=== PATIENT | male | born 1955 | race Caucasian/White ===

== ENCOUNTER 2017-04-04 02:26 | Day surgery (SDC) | payer OTHER ==
[2013-10-14 11:42] VITALS: Ht 193 cm; Wt 91.2 kg
[~2017-04-04] VITALS: Ht 193 cm; Wt 91.2 kg
[~2017-04-04 02:26] MED LIST: ASPI81TA94 PO; CALC600T59 PO; CELE-1 PO; Ciprofloxacin PO; FISH OIL1 CAP PO; GLUC500C29 PO; GOLYTE PO; MULT-820 PO; OXYC-865 PO; RIVA10TA PO; UBID10CA8 PO
[2017-04-04] MEDS ORDERED: PROPOFOL EMUL(*) 10MG/ML 20 ML 20 ML ONE ×2 (06:47→09:12)
[2017-04-04 06:57] VITALS: BP 130/84
[2017-04-04] MEDS ORDERED: NORMOSOL R SOLN(*) 1000 ML BAG 1,000 ML IV PRN (07:25)
[2017-04-04] MEDS ORDERED: MIDAZOLAM 2 MG/2 ML VIAL IVP PRN (07:25)
[2017-04-04] MEDS ORDERED: LIDOCAINE/SOD BICARB 8.4% SYR ID ONE (07:25)
[2017-04-04 09:54] VITALS: BP 107/76
--- NOTE | 2017-04-04 10:00 | Short(Outpt) Discharge Summary ---
Discharge Summary Reason for Hosp/Final Diag: (1) Colon cancer screening Status: Chronic Hospital Course & Plan: Colonoscopy x4 completed without problems. Departure Discharge to: Home, Self Care Discharge Instructions Home Meds Active Scripts Peg/Electrolytes (GOLYTELY SOLUTION) 4,000 Ml Soln, 1 GAL PO ONCE, #1 GAL 0 Refills Prov:MADELINE LOPEZ MD 03/03/17 Diet: Regular Activity: As Tolerated Special Instructions: Your colonoscopy was completed without problems and your prep was excellent (Good Job!!). I removed 4 polyps from your colon. My office will call you in the next week and let you know what the polyps are and when your next colonoscopy should be. MADELINE LOPEZ MD Apr 04, 2017 10:00
[2017-04-04 10:11] VITALS: BP 113/76
[2017-04-04 10:13] VITALS: BP 97/62
[2017-04-04 10:14] VITALS: BP 88/63
== END 2017-04-04 10:25 | disposition home or self-care (01) ==
LOC: OR 02:26
PROVIDERS: ATTEND Surgery
DX: Z12.11 Encounter for screening for malignant neoplasm of colon (principal); D12.2 Benign neoplasm of ascending colon; D12.0 Benign neoplasm of cecum; D12.3 Benign neoplasm of transverse colon
CPT/HCPCS: 45380; 45385; 88305; J2704